=== PATIENT | male | born 2000 | race African-American/Black ===

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

== ENCOUNTER 2020-06-13 07:11 | Emergency (ER) | payer OTHER ==
[~2020-06-13] VITALS: Ht 182.9 cm; Wt 101.0 kg
[~2020-06-13 07:11] MED LIST changes: -ALBU18HF; +ALBU2.5V8
[2020-06-13 07:20] VITALS: BP 156/57
--- NOTE | 2020-06-13 07:38 | PHYS DOC ---
Past History Past Medical History: Asthma, Diabetes, Sickle Cell Disease, Other Past Surgical History: No Surgical History Smoking: Non-smoker Alcohol Use: None Drug Use: None General Adult EDM: Chief Complaint: HEAD INJURY/TRAUMA HPI: HPI: Patient is a 19-year-old male who came to ER today for evaluation headache. Patient said he accidentally hit the back of his head against the edge of a table 4 days ago when he was trying to sit down on the floor and somehow hit the back of his head. Patient denies any loss of consciousness. Patient is not on any blood thinner. Patient had no history of bleeding. Patient denies any nausea or vomiting. Patient says since the accident he had intermittent episodes of headache, no neck pain, no fever. Patient went to work today, his boss told him to come to ER for evaluation and he will need to have a medical clearance to go back to work because he missed work last few days. Review of Systems: Review of Systems: Constitutional: Denies fever or chills Eyes: Denies change in visual acuity HENT: Denies nasal congestion or sore throat. Positive for headache. Respiratory: Denies cough or shortness of breath Cardiovascular: Denies chest pain or edema GI: Denies abdominal pain, nausea, vomiting, bloody stools or diarrhea : Denies dysuria Musculoskeletal: Denies back pain or joint pain Integument: Denies rash Neurologic: Denies headache, focal weakness or sensory changes Endocrine: Denies polyuria or polydipsia Lymphatic: Denies swollen glands Psychiatric: Denies depression or anxiety Heart Score: Risk Factors: Risk Factors: DM, Current or recent (<one month) smoker, HTN, HLP, family history of CAD, obesity. Risk Scores: Score 0 - 3: 2.5% MACE over next 6 weeks - Discharge Home Score 4 - 6: 20.3% MACE over next 6 weeks - Admit for Clinical Observation Score 7 - 10: 72.7% MACE over next 6 weeks - Early Invasive Strategies Allergies: Allergies: Allergies Coded Allergies Type Severity Reaction Last Updated Verified cephalexin Allergy Severe Rash 04/18/16 Yes Sulfa (Sulfonamide Antibiotics) Allergy Intermediate 01/11/16 Yes Physical Exam: PE: Constitutional: Well developed, well nourished, no acute distress, non-toxic appearance. [] HENT: Normocephalic, atraumatic, bilateral external ears normal, oropharynx moist, no oral exudates, nose normal. [] Eyes: PERRLA, EOMI, conjunctiva normal, no discharge. [] Neck: Normal range of motion, no tenderness, supple, no stridor. [] Cardiovascular:Heart rate regular rhythm, no murmur [] Lungs & Thorax: Bilateral breath sounds clear to auscultation [] Abdomen: Bowel sounds normal, soft, no tenderness, no masses, no pulsatile masses. [] Skin: Warm, dry, no erythema, no rash. [] Back: No tenderness, no CVA tenderness. [] Extremities: No tenderness, no cyanosis, no clubbing, ROM intact, no edema. [] Neurologic: Alert and oriented X 3, normal motor function, normal sensory funct ion, no focal deficits noted. [] Psychologic: Affect normal, judgement normal, mood normal. [] EKG: EKG: [] Radiology/Procedures: Radiology/Procedures: [] Course & Med Decision Making: Course & Med Decision Making Pertinent Labs and Imaging studies reviewed. (See chart for details) Patient is a 19-year-old man who was evaluated in the ER due to head injury. Patient had no loss of consciousness, no nausea vomiting, examination did not show any evidence of contusion or injury. Patient had no neurological deficits. The accident happened 4 days ago. Patient has been able to walk without a problem, there is no indication for CT scan of his head. No further work-up needed. Rene Disclaimer: Rene Disclaimer: This electronic medical record was generated, in whole or in part, using a voice recognition dictation system. Departure Departure: Impression: Primary Impression: Headache Additional Impression: Concussion Disposition: 01 HOME/RESIDENCE PRIOR TO ADM Condition: STABLE Referrals: PCP,NO (PCP) follow up with your doctor as needed Patient Instructions: Concussion and Brain Injury, [id number] Additional Instructions: Patient/Caregiver given discharge instructions and they have confirmed that they understand the instructions. Patient ambulatory with steady gait. Justification of Admission: Justification of Admission: Justification of Admission Dx: N/A BRANDON DUMONT DO Jun 13, 2020 07:38
== END 2020-06-13 07:51 | disposition home or self-care (01) ==
LOC: ER 07:11
DX: S06.0X9A Concussion with loss of consciousness of unspecified duration, initial encounter (principal); J45.909 Unspecified asthma, uncomplicated; E11.9 Type 2 diabetes mellitus without complications; Z86.2 Personal history of diseases of the blood and blood-forming organs and certain disorders involving the immune mechanism; Z88.1 Allergy status to other antibiotic agents; Z88.2 Allergy status to sulfonamides; W22.8XXA Striking against or struck by other objects, initial encounter; Y93.89 Activity, other specified; Y92.89 Other specified places as the place of occurrence of the external cause; Y99.8 Other external cause status
CPT/HCPCS: 99281